=== PATIENT | female | born 1950 | race Caucasian/White ===

== ENCOUNTER 2017-01-14 13:53 | Emergency (ER) | payer OTHER | END 2017-01-14 16:25 | disposition home or self-care (01) | LOC: ER1 13:53 | DX: S20.211A Contusion of right front wall of thorax, initial encounter (principal); I10 Essential (primary) hypertension; E07.9 Disorder of thyroid, unspecified; E78.5 Hyperlipidemia, unspecified; Z79.82 Long term (current) use of aspirin; Z79.899 Other long term (current) drug therapy; W08.XXXA Fall from other furniture, initial encounter; Y92.22 Religious institution as the place of occurrence of the external cause | CPT/HCPCS: 71101; 99284 ==

== ENCOUNTER 2017-02-17 08:02 | Emergency (ER) | payer OTHER ==
[2017-02-17 10:05] LABS: HEMOGLOBIN 12.9 gm/dl (12.3-15.3); RED BLOOD COUNT 4.17 M/UL (4.00-5.10); WHITE BLOOD COUNT 7.2 K/UL (4.5-11.0)
[2017-02-17 10:44] LABS: BUN/CREATININE RATIO 11 (0-10)
== END 2017-02-17 16:38 | disposition home or self-care (01) ==
LOC: ER1 08:02
PROVIDERS: Specialist/Technologist Athletic Trainer
DX: I82.622 Acute embolism and thrombosis of deep veins of left upper extremity (principal); E87.6 Hypokalemia; E03.9 Hypothyroidism, unspecified; Z88.1 Allergy status to other antibiotic agents; Z79.899 Other long term (current) drug therapy
CPT/HCPCS: 36415; 80053; 82550; 82553; 83605; 83874; 84484; 85025; 85379; 85610; 85730; 87040; 93005; 96374; 96375; 99284; J1200; J2930; J7050; Q9963

== ENCOUNTER → 2017-02-19 | Outpatient (CLI) | payer OTHER | LOC: KOH-I 15:30 | DX: M79.89 Other specified soft tissue disorders (principal) | CPT/HCPCS: 93971 ==